=== PATIENT | female | born 1955 | race Caucasian/White ===

== ENCOUNTER → 2016-03-07 | Outpatient (REF) | payer BC ==
[2016-03-07 13:45] LABS: CRYSTALS, BODY FLUID NONE SEEN (NONE SEEN)
[2016-03-07 13:59] LABS: RBC ADVIA BF 0; RBC CALC. BF < 10000 (< 10mm3 cells/uL); WBC ADVIA BF 12.6; WBC CALC. BF 12600 cells/uL (0-20)
[2016-03-07 14:15] LABS: BF DIFF IF INDICATED? YES (NO); SYNOVIAL FLUID COLOR PALE YELLOW (YELLOW)
[2016-03-07 14:25] LABS: CC BF DIFF EXAM CYTOCENTRIFUGE
== END ==
LOC: M LAB REF 13:22
PROVIDERS: ATTEND Internal Medicine Rheumatology
DX: M10.9 Gout, unspecified (principal)

== ENCOUNTER → 2016-03-23 | Outpatient (CLI) | payer BC ==
[2016-03-23 19:36] LABS: ALBUMIN/GLOBULIN RATIO 1.21 (1.00-1.93); ALKALINE PHOSPHATASE 120 U/L (45-117); ALT/SGPT 27 U/L (12-78); ANION GAP 6 MEQ/L (8-16); AST/SGOT 21 U/L (15-37); BILIRUBIN,TOTAL 0.3 MG/DL (0.2-1.0); BLOOD UREA NITROGEN 18 MG/DL (7-18); CALCIUM LEVEL 8.8 MG/DL (8.8-10.2); CARBON DIOXIDE LEVEL 30 MEQ/L (21-32); CHLORIDE LEVEL 106 MEQ/L (98-107); CREATININE FOR GFR 0.76 MG/DL (0.55-1.02); GLOMERULAR FILTRATION RATE > 60.0 (>45); GLUCOSE, FASTING 81 MG/DL (80-110); PERCENT SATURATION 16.7 % (13.2-37.4); SODIUM LEVEL 142 MEQ/L (136-145); TOTAL IRON BINDING CAPACITY 323 UG/DL (250-450); TOTAL PROTEIN 7.3 GM/DL (6.4-8.2); URIC ACID 4.4 MG/DL (2.6-6.0)
[2016-03-23 19:39] LABS: BASO % 0.8 % (0.0-1.0); EOS # 0.2 K/mm3 (0.0-0.50); EOS % 4.4 % (0.0-3.0); LARGE UNSTAINED CELL # 0.1 K/mm3 (0.0-0.4); LARGE UNSTAINED CELL % 1.9 % (0.0-4.0); LYMPH # 1.4 K/mm3 (1.5-4.5); LYMPH % 27.7 % (24.0-44.0); MEAN CORPUSCULAR HEMOGLOBIN 26.9 pg (27.0-33.0); MEAN CORPUSCULAR HGB CONC 32.7 g/dl (32.0-36.5); MEAN CORPUSCULAR VOLUME 82.3 fl (80.0-96.0); MONO # 0.3 K/mm3 (0.0-0.8); MONO % 5.9 % (0.0-5.0); NEUTROPHILS # 2.9 K/mm3 (1.8-7.7); NEUTROPHILS % 59.3 % (36.0-66.0); PLATELET COUNT, AUTOMATED 326 k/mm3 (150-450); RED CELL DISTRIBUTION WIDTH 15.4 % (11.5-14.5); WHITE BLOOD COUNT 4.9 K/mm3 (4.0-10.0)
[2016-03-23 20:15] LABS: ERYTHROCYTE SEDIMENTATION RATE 33 mm/hr (0-30)
[2016-03-26 08:06] LABS: Lyme Disease IgG Ab 18 kDa Ban Present (.); Lyme Disease IgG Ab 23 kDa Ban Present (.); Lyme Disease IgG Ab 28 kDa Ban Present (.); Lyme Disease IgG Ab 30 kDa Ban Present (.); Lyme Disease IgG Ab 39 kDa Ban Present (.); Lyme Disease IgG Ab 41 kDa Ban Present (.); Lyme Disease IgG Ab 45 kDa Ban Present (.); Lyme Disease IgG Ab 58 kDa Ban Present (.); Lyme Disease IgG Ab 66 kDa Ban Present (.); Lyme Disease IgG Ab 93 kDa Ban Present (.); Lyme Disease IgG West Blot Int Positive (.); Lyme Disease IgG/IgM Antibodie 3.28 ISR (0.00-0.90); Lyme Disease IgM Ab 23 kDa Ban Present (.); Lyme Disease IgM Ab 39 kDa Ban Present (.); Lyme Disease IgM Ab 41 kDa Ban Present (.); Lyme Disease IgM Ab Quantitati 4.23 index (0.00-0.79); Lyme Disease IgM West Blot Int Positive (.)
[2016-03-27 12:57] LABS: ALBUMIN 4.18 GM/DL (3.29-5.55); ALBUMIN % 57.2 % (55.8-66.1); GAMMA GLOBULIN % 16.5 % (11.1-18.8)
== END ==
LOC: M LAB 18:14
PROVIDERS: ATTEND Internal Medicine Rheumatology
DX: E83.110 Hereditary hemochromatosis (principal)

== ENCOUNTER → 2016-04-17 | Outpatient (CLI) | payer BC ==
[~2016-04-17] VITALS: Ht 167.6 cm; Wt 68.0 kg
[~2016-04-17] MED LIST: DOXY-278 PO; MULT1TAB10 PO; PROPOFOL 200 MG/20 ML VIAL As Ordered ONE
[2016-04-17] MEDS: NS 1,000 ML IV SCH ×2 (07:41→07:42)
--- NOTE | 2016-04-17 08:10 | ROOR ---
Patient Name: Joselyn Cisse Procedure Date: 04/17/2016 7:49 AM Date of : 1955 Age: 60 Room: [place] Gender: Female Note Status: Finalized Procedure: Colonoscopy Indications: Screening for colorectal malignant neoplasm Providers: Billy AGUSTIN MD Referring MD: Bela Hairston DO Requesting Provider: Medicines: Monitored Anesthesia Care Complications: No immediate complications. Procedure: Pre-Anesthesia Assessment: - The heart rate, respiratory rate, oxygen saturations, blood pressure, adequacy of pulmonary ventilation, and response to care were monitored throughout the procedure. The Colonoscope was introduced through the anus and advanced to the terminal ileum, with identification of the appendiceal orifice and IC valve. The colonoscopy was performed without difficulty. The patient tolerated the procedure well. The quality of the bowel preparation was good. Findings: The perianal and digital rectal examinations were normal. (Exam: Complete, Prep: Good or Excellent.) The terminal ileum appeared normal. The entire examined colon appeared normal on direct and retroflexion views. Impression: - (Exam: Complete, Prep: Good or Excellent.) - Small internal hemorrhoids. - The examined portion of the ileum was normal. - The entire is normal on direct and retroflexion views. - No specimens collected. Recommendation: - Repeat colonoscopy in 10 years for screening purposes. Billy Agustin MD Billy AGUSTIN MD 04/17/2016 8:10:19 AM This report has been signed electronically. Number of Addenda: 0 Note Initiated On: 04/17/2016 7:49 AM Estimated Blood Loss: Estimated blood loss: none.
[2016-04-17 08:30] VITALS: BP 127/69
== END | disposition home or self-care (01) ==
LOC: M OPP 07:08
PROVIDERS: ATTEND Internal Medicine Gastroenterology
DX: Z12.11 Encounter for screening for malignant neoplasm of colon (principal); K64.8 Other hemorrhoids; D64.9 Anemia, unspecified; Z80.3 Family history of malignant neoplasm of breast; Z79.899 Other long term (current) drug therapy
CPT/HCPCS: 99156; G0121

== ENCOUNTER → 2016-07-27 | Outpatient (REF) | payer OTHER ==
[~2016-07-27] MED LIST changes: -PROPOFOL 200 MG/20 ML VIAL As Ordered ONE
[2016-07-27 13:26] LABS: BASO % 0.9 % (0.0-1.0); EOS # 0.6 K/mm3 (0.0-0.50); EOS % 12.7 % (0.0-3.0); LARGE UNSTAINED CELL # 0.1 K/mm3 (0.0-0.4); LARGE UNSTAINED CELL % 2.3 % (0.0-4.0); LYMPH # 1.5 K/mm3 (1.5-4.5); LYMPH % 31.6 % (24.0-44.0); MEAN CORPUSCULAR HEMOGLOBIN 29.9 pg (27.0-33.0); MEAN CORPUSCULAR HGB CONC 33.9 g/dl (32.0-36.5); MEAN CORPUSCULAR VOLUME 88.2 fl (80.0-96.0); MONO # 0.3 K/mm3 (0.0-0.8); MONO % 6.8 % (0.0-5.0); NEUTROPHILS # 2.1 K/mm3 (1.8-7.7); NEUTROPHILS % 45.8 % (36.0-66.0); PLATELET COUNT, AUTOMATED 305 k/mm3 (150-450); RED CELL DISTRIBUTION WIDTH 13.3 % (11.5-14.5); WHITE BLOOD COUNT 4.6 K/mm3 (4.0-10.0)
== END ==
LOC: M SFHCADAM 09:53
PROVIDERS: ATTEND Family Medicine
DX: D64.9 Anemia, unspecified (principal); E55.9 Vitamin D deficiency, unspecified

== ENCOUNTER → 2016-09-08 | Outpatient (REF) | payer OTHER | LOC: M LAB REF 17:35 | PROVIDERS: ATTEND Advanced Practice Midwife | DX: Z12.4 Encounter for screening for malignant neoplasm of cervix (principal) ==

== ENCOUNTER → 2016-09-12 | Outpatient (CLI) | payer OTHER ==
--- NOTE | 2016-09-12 16:28 | REP ---
BILATERAL MAMMOGRAM WITH DIAGNOSTIC MAMMOGRAM RIGHT BREAST AND RIGHT BREAST ULTRASOUND: Bilateral mammography is performed in the MLO and mL projections. There is a history of palpable abnormality in the upper outer quadrant of the right breast and that area is marked on the skin with a triangular marker. There is a family history of breast cancer in maternal aunt and maternal grandmother. Moderate fibroglandular tissue is seen bilaterally. There is a large spiculated mass in the upper outer quadrant of the right breast at the site of the reported palpable abnormality. The mass measures approximately 3 cm in diameter. No other mass or clustered microcalcifications are seen bilaterally. Real-time sonographic evaluation of the right breast is performed at the site of the reported palpable abnormality in the upper outer quadrant of the right breast. There is a large irregular shadowing mass 1.5 cm in diameter in the region of 11 o'clock. These findings are highly suspicious. IMPRESSION: ACR 5 mammogram compatible with breast cancer, upper outer quadrant right breast. Large spiculated mass is seen both mammographically and sonographically. Findings are compatible with breast cancer. This mammogram was interpreted with the aid of an FDA-approved computer-aided detection system. The patient states she had a clinical breast exam in 09/2016. The patient letter being requested is M4. Signed by Kenn Gil MD 09/12/2016 05:00 P
== END ==
LOC: M RAD 13:29
PROVIDERS: ATTEND Advanced Practice Midwife
DX: Z12.31 Encounter for screening mammogram for malignant neoplasm of breast (principal)

== ENCOUNTER → 2016-09-27 | Outpatient (REF) | payer OTHER ==
[2016-09-27 20:09] LABS: ANION GAP 6 MEQ/L (8-16); BLOOD UREA NITROGEN 14 MG/DL (7-18); CALCIUM LEVEL 8.9 MG/DL (8.8-10.2); CARBON DIOXIDE LEVEL 29 MEQ/L (21-32); CHLORIDE LEVEL 102 MEQ/L (98-107); GLOMERULAR FILTRATION RATE > 60.0 (>45); GLUCOSE, FASTING 87 MG/DL (80-110); POTASSIUM SERUM 3.9 MEQ/L (3.5-5.1); SODIUM LEVEL 137 MEQ/L (136-145)
== END ==
LOC: M LAB REF 19:52
PROVIDERS: ATTEND Nurse Practitioner Family
DX: C50.911 Malignant neoplasm of unspecified site of right female breast (principal)

== ENCOUNTER → 2016-10-18 | Outpatient (REF) | payer OTHER | LOC: M LAB REF 14:34 | PROVIDERS: ATTEND Ophthalmology | DX: C44.119 Basal cell carcinoma of skin of left eyelid, including canthus (principal) ==

== ENCOUNTER → 2016-12-08 | Outpatient (CLI) | payer OTHER ==
--- NOTE | 2016-12-08 11:06 | REP ---
Radionuclide ventriculography: History: Lobular carcinoma of the right breast. Pre-chemotherapy. Technique: 26.7 mCi technetium 99m in-vitro labeled UltraTag RBC agent is administered intravenously. Anterior, ROMAN, and left lateral gated left ventriculography is acquired scintigraphically. Semi-automated segmental wall motion analysis and left ventricular ejection fraction is acquired. Findings: There is a small artifactual area of photopenia on the anterior and more prominently, ROMAN views overlying the left ventricular wall correlating with a metallic component of the patient's post mastectomy breast reconstruction tissue hot die press feeder device. Left ventricular overall ejection fraction is 76%. No segmental wall motion abnormality is seen visually or detected on semi-automated segmental wall motion analysis. Impression: Normal left ventricular ejection fraction. No wall motion abnormality. Signed by Fausto Schuler MD 12/08/2016 03:50 P
== END ==
LOC: M RAD 08:28
PROVIDERS: ATTEND Internal Medicine Hematology & Oncology
DX: C50.919 Malignant neoplasm of unspecified site of unspecified female breast (principal)

== ENCOUNTER → 2016-12-15 | Outpatient (CLI) | payer OTHER ==
--- NOTE | 2016-12-15 14:32 | REP ---
WHOLE BODY RADIONUCLIDE BONE SCAN: HISTORY: Breast carcinoma. Question metastases. The patient denies bone or joint pain. TECHNIQUE: 22.0 mCi technetium 99m MDP is injected and standard whole body bone scan images are acquired. SCINTIGRAPHIC FINDINGS: There is uptake in bilateral kidneys and in the urinary bladder. There is a focus of intensely increased uptake in the head and neck junction region of the right proximal femur in the right hip. This must be considered suspicious. MRI scanning of the right hip is recommended. There is arthritic uptake in each knee and in each midfoot. There is no other evidence to suggest skeletal metastatic disease. IMPRESSION: Solitary suspicious focus of increased uptake in the right hip. Recommend right hip MRI study. No definite lesion seen on recent CT study. No other scintigraphic evidence of metastatic disease. Signed by Fausto Schuler MD 12/15/2016 03:15 P
== END ==
LOC: M RAD 09:40
PROVIDERS: ATTEND Internal Medicine Hematology & Oncology
DX: C50.911 Malignant neoplasm of unspecified site of right female breast (principal)

== ENCOUNTER → 2017-05-03 | Outpatient (CLI) | payer OTHER | LOC: M ONCR 13:10 | DX: C50.919 Malignant neoplasm of unspecified site of unspecified female breast (principal) | CPT/HCPCS: G0463 ==

== ENCOUNTER 2017-05-22 14:00 | Outpatient (RCR) | payer OTHER | END 2017-06-02 | LOC: M ONCR 14:00 | DX: C50.411 Malignant neoplasm of upper-outer quadrant of right female breast (principal) | CPT/HCPCS: 77334 ==

== ENCOUNTER → 2017-05-22 | Outpatient (CLI) | payer OTHER | LOC: M RAD 14:03 | DX: C50.911 Malignant neoplasm of unspecified site of right female breast (principal) ==

== ENCOUNTER 2017-06-04 14:47 | Outpatient (RCR) | payer OTHER | END 2017-07-02 | LOC: M ONCR 14:47 | DX: C50.411 Malignant neoplasm of upper-outer quadrant of right female breast (principal) | CPT/HCPCS: 77300 ==

== ENCOUNTER → 2017-06-04 | Outpatient (CLI) | payer OTHER | LOC: M RAD 14:32 | DX: C50.411 Malignant neoplasm of upper-outer quadrant of right female breast (principal) ==

== ENCOUNTER 2017-07-03 11:27 | Outpatient (RCR) | payer OTHER | END 2017-08-02 | LOC: M ONCR 11:27 | DX: C50.411 Malignant neoplasm of upper-outer quadrant of right female breast (principal) | CPT/HCPCS: 77336 ==

== ENCOUNTER → 2017-08-22 | Outpatient (CLI) | payer OTHER | LOC: M ONCR 09:47 | DX: C50.411 Malignant neoplasm of upper-outer quadrant of right female breast (principal) ==

== ENCOUNTER → 2018-08-21 | Outpatient (CLI) | payer OTHER ==
[~2018-08-21] MED LIST changes: -DOXY-278 PO; +DOXY-350 PO; +SILV40CR EXT
--- NOTE | 2018-08-23 07:43 | RADONC ---
RADIATION ONCOLOGY FOLLOWUP NOTE: DATE: 08/21/2018 CHART NUMBER: [id number] DIAGNOSIS: Right breast cancer. STAGE: III A,T3,N1a,M0. ECOG PERFORMANCE STATUS: 0 Ms. 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 The patient presents today reporting that she is doing quite well with no complaints at this time related to her radiation therapy or disease other than some left hip and thigh pain, mostly at night. REVIEW OF SYSTEMS: The patient's review of systems is positive for left hip and thigh pain but is otherwise noncontributory. She denies nausea, vomiting, fevers, chills, night sweats, diplopia, headaches, anxiety or depression, anorexia, weight loss, visual disturbances, chest pain, urinary or bowel difficulties, bone pain, or neurological problems. PHYSICAL EXAMINATION: The patient's skin is in good condition with no evidence of radiation change present. There is no moist or dry desquamation. The remainder of her physical exam remains unchanged. Ms. Cisse is clinically doing quite well at this time and I have scheduled her to see me again in 6 months for further followup. She will also continue to be followed by her other physicians. She is seeing Dr. Pruitt every 6 months. I have ordered a new bone scan to evaluate her left hip pain for the sake of thoroughness. cc: MD Pepper Marrero MD Caitlin Donegan-Tartell, DO Prashant Upadhyaya, MD
== END ==
LOC: M ONCR 11:13
PROVIDERS: ATTEND Radiology Radiation Oncology
DX: Z85.3 Personal history of malignant neoplasm of breast (principal); Z92.3 Personal history of irradiation

== ENCOUNTER → 2018-09-26 | Outpatient (CLI) | payer OTHER ==
--- NOTE | 2018-09-26 15:26 | REP ---
WHOLE BODY BONE SCAN: Following the intravenous administration of 21.8 mCi technetium 99m MDP, patient's whole body is imaged in the anterior and posterior projections. Additional oblique and lateral views are also obtained. COMPARISON: 12/15/2016 Previously noted focus of increased uptake in the lateral right femoral head/neck region is not visualized on today's exam. There does appear to be diffuse increased uptake throughout the right hip joint region suggesting arthritic change. There are areas of mild increased uptake at the thoracolumbar junction and in the lumbar spine diffusely, suggesting arthritic uptake. There is no compelling scintigraphic evidence of osseous metastases. Renal and bladder activity are seen. There is no abnormal uptake at the site of pain in the left hip. IMPRESSION: No abnormal left hip uptake. There is mild diffuse increased uptake in the region of the right hip joint suggesting arthritic uptake. Mild increased uptake throughout the lumbar spine is also suggestive of arthritic uptake. No compelling scintigraphic evidence of osseous metastases. Electronically Signed by Kenn Gil MD 09/26/2018 05:47 P
== END ==
LOC: M RAD 10:35
PROVIDERS: ATTEND Radiology Radiation Oncology
DX: M25.552 Pain in left hip (principal)
CPT/HCPCS: 78306; A9503

== ENCOUNTER → 2018-11-12 | Outpatient (REF) | payer OTHER ==
[2018-11-12 13:33] LABS: CHOLESTEROL RISK RATIO 2.437 (<5)
== END ==
LOC: M SFHCADAM 08:36
PROVIDERS: ATTEND Family Medicine
DX: Z00.00 Encounter for general adult medical examination without abnormal findings (principal)

== ENCOUNTER → 2019-02-05 | Outpatient (CLI) | payer OTHER ==
--- NOTE | 2019-02-05 14:07 | RADONC ---
RADIATION ONCOLOGY FOLLOWUP NOTE DATE: 02/05/2019 DATE of ; 1955 CHART NUMBER: [id number] Mrs. Cisse is a very pleasant 63-year-old woman who had a diagnosis of right breast cancer, stage is III A, T3NaM0. She completed radiation therapy on 07/20/2017. INTERVAL HISTORY: Since she finished the treatment, she has been on anastrazole. She has some pain in the left hip and thigh, mostly at night, however, the pain is relieved with change of position. REVIEW OF SYSTEMS: She has pain in the left hip and thigh. Otherwise, she denies any fever, chills, hot flashes or bone pain. ECOG Perfomace score:0 PHYSICAL EXAMINATION: She appeared to be well nourished. No apparent distress. There is no palpable lymphadenopathy in the neck, axillae bilaterally. Both breasts are reconstructed. Lungs are clear. There is no bony tenderness over the spine or ribcage. Extremities are without swelling or cyanosis. ASSESSMENT/RECOMMENDATIONS: 63-year-old woman who has a diagnosis of stage III A right breast cancer. She is completed radiation therapy in July 2017, she is currently on anastrazole and experiencing pain in the left hip and thigh that is mostly at night, which is relieved by change of position. She is scheduled for MRI of both breasts in a couple of months. She was advised continuous followup care with the physicians involved and she was asked to return here in 6 months. [facility]
== END ==
LOC: M ONCR 13:13
PROVIDERS: ATTEND Radiology Radiation Oncology
DX: C50.411 Malignant neoplasm of upper-outer quadrant of right female breast (principal); Z92.3 Personal history of irradiation

== ENCOUNTER → 2019-08-20 | Outpatient (CLI) | payer MEDICARE, OTHER ==
--- NOTE | 2019-08-21 17:53 | RADONC ---
RADIATION ONCOLOGY FOLLOWUP NOTE DATE: 08/20/2019 This is a telemedicine visit. The patient was informed of the risks including security breech, technological failure, inability to perform a comprehensive physical exam which could delay or prevent an accurate diagnosis, and potential complications from treatment decisions rendered over a telemedicine platform. The patient understands and consented to the use of telehealth services phone only. CHART NUMBER: [id number] DIAGNOSIS: Right breast cancer. STAGE: III A, T3, N1a, M0 ECOG PERFORMANCE STATUS: 0 FOLLOWUP NOTE: Ms. Cisse is a very pleasant 64-year-old white female with the diagnosis of a right-sided, moderately differentiated invasive and in situ lobular carcinoma of the breast, who is presenting to us today for routine followup visit via telephone 2 years and 1 month post completion of external beam radiation therapy. The patient presents today reporting that she is doing quite well with no complaints at this time related to her radiation therapy or disease. She has no chest wall pain or other problems. The patient's review of systems is noncontributory. She denies nausea, vomiting, fevers, chills, night sweats, diplopia, headaches, anxiety or depression, anorexia, weight loss, visual disturbances, chest pain, urinary or bowel difficulties, bone pain, or neurological problems. PHYSICAL EXAMINATION: Physical examination was deferred as per COVID-19 precautions. This was a telephone interview. ASSESSMENT: The patient is clinically doing quite well at this point. She is following with her medical oncologist, Dr. Jonathan Hutchinson, routinely. In addition, she is being seen in September by her surgeon Dr. Pepper Louis, and an MRI is scheduled. She is also being followed by her other physicians in the meantime. I have scheduled the patient to be seen in our office in 4-months' time. I explained to her that I will be retiring and this way we can set her up with the new physician for routine followups. I let her know if she is continuing her close followup and management with her physicians in [place] then, of course, she can cancel this, this way we are closing the loops so that she will remain in the system and will not be lost after my long-term. cc: MD Pepper Marrero MD Caitlin Donegan-Tartell, DO Prashant Upadhyaya, MD
== END ==
LOC: M ONCR 10:44
PROVIDERS: ATTEND Radiology Radiation Oncology
DX: C50.411 Malignant neoplasm of upper-outer quadrant of right female breast (principal)

== ENCOUNTER → 2020-03-31 | Outpatient (REF) | payer MEDICARE | LOC: M SFHCWAGY 17:18 | PROVIDERS: ATTEND Advanced Practice Midwife | DX: Z12.4 Encounter for screening for malignant neoplasm of cervix (principal); N95.8 Other specified menopausal and perimenopausal disorders | CPT/HCPCS: 87624; G0123 ==

== ENCOUNTER → 2020-04-05 | Outpatient (CLI) | payer MEDICARE ==
--- NOTE | 2020-04-05 13:40 | REP ---
INDICATION: RT SIDED CRAMPING,HX BREAST CA ANDATM GENE. COMPARISON: Comparison CT study abdomen and pelvis December 12, 2016. Comparison sonography October 31, 2019.. TECHNIQUE: Transabdominal and transvaginal scanning were performed. FINDINGS: Uterine dimensions are normal at 5.3 x 0 1.7 x 3.4 cm. Endometrial echo is 0.8 cm thick and centrally placed. No free fluid is seen in the cul-de-sac. Visualized bladder zapata are smooth. There is a trace of endo meet real fluid. There is a small 0.5 cm fundal fibroid. The right ovary has dimensions of 2.1 by 0.7 x 1.4 cm. Doppler flow was observed. The left ovary dimensions are normal as well at 2.4 x 1.1 x 0.9 cm. Doppler flow was observed. IMPRESSION: Trace of endometrial fluid. No evidence of endometrial polyp. 0.5 cm fibroid in the fundus.. Otherwise negative. <Electronically signed by Raffi Schuler > 04/05/20 [id number]
== END ==
LOC: M WHC 10:27
PROVIDERS: ATTEND Advanced Practice Midwife
DX: R10.2 Pelvic and perineal pain (principal); Z85.3 Personal history of malignant neoplasm of breast

== ENCOUNTER → 2020-06-11 | Outpatient (CLI) | payer MEDICARE | LOC: M WHC 13:50 | PROVIDERS: ATTEND Obstetrics & Gynecology | DX: R93.89 Abnormal findings on diagnostic imaging of other specified body structures (principal) ==

== ENCOUNTER → 2020-12-14 | Outpatient (CLI) | payer MEDICARE ==
--- NOTE | 2020-12-14 14:31 | REP ---
INDICATION: THICKENED ENDOMETRIUM COMPARISON: 04/05/2020 TECHNIQUE: Transabdominal pelvic ultrasound followed by transvaginal examination for better evaluation of the endometrium and adnexa. FINDINGS: Bladder is unremarkable and measures 8.8 x 8.3 x 9.3 cm. Anteverted uterus measures 5.8 x 2.1 x 3.8 cm. Trace endocervical fluid is noted. The endometrial complex measures approximately 1.8 mm thickness excluding the fluid. 6 mm submucosal fundal fibroid identified. Left ovary is not visualized. Right ovary is normal in appearance measuring 1.4 x 0.8 x 0.9 cm. No pelvic fluid or adnexal mass lesion IMPRESSION: Sub cm fundal submucosal fibroid <Electronically signed by Cedrick Mathews > 12/14/20 [id number]
== END ==
LOC: M WHC 13:01
PROVIDERS: ATTEND Obstetrics & Gynecology
DX: R93.89 Abnormal findings on diagnostic imaging of other specified body structures (principal)

== ENCOUNTER → 2021-03-25 | Outpatient (CLI) | payer MEDICARE ==
[~2021-03-25] MED LIST changes: +ANAS1TAB2 PO; +CETI10TA4 PO; +FLON1SPR; +VITMTA PO
== END ==
LOC: M LABSMTC 10:28
PROVIDERS: ATTEND Anesthesiology
DX: Z01.812 Encounter for preprocedural laboratory examination (principal); Z20.822 Contact with and (suspected) exposure to COVID-19

== ENCOUNTER 2021-03-30 08:27 | Day surgery (SDC) | payer MEDICARE ==
[~2021-03-30] VITALS: Ht 165.1 cm; Wt 69.4 kg
[2021-03-30 12:40] VITALS: BP 158/97
== END 2021-03-30 13:00 | disposition home or self-care (01) ==
LOC: M SDC 08:27
PROVIDERS: ATTEND Obstetrics & Gynecology
DX: N84.0 Polyp of corpus uteri (principal); N88.2 Stricture and stenosis of cervix uteri; Z79.899 Other long term (current) drug therapy; Z92.21 Personal history of antineoplastic chemotherapy; Z85.3 Personal history of malignant neoplasm of breast; Z92.3 Personal history of irradiation
CPT/HCPCS: 36415; 58558; 85027; 86850; 86900; 86901; 88305; J1100; J1885; J2250; J2405; J2765; J3010

== ENCOUNTER → 2021-05-06 | Outpatient (CLI) | payer MEDICARE | LOC: M WHC 14:56 | PROVIDERS: ATTEND Internal Medicine Hematology & Oncology | DX: Z13.820 Encounter for screening for osteoporosis (principal); C50.411 Malignant neoplasm of upper-outer quadrant of right female breast; M85.88 Other specified disorders of bone density and structure, other site; M85.851 Other specified disorders of bone density and structure, right thigh; M85.852 Other specified disorders of bone density and structure, left thigh ==

== ENCOUNTER → 2021-11-24 | Outpatient (REF) | payer MEDICARE ==
[2021-11-24 13:37] LABS: BASO # 0.1 10^3/uL (0.0-0.2); BASO % 1.6 % (0.0-1.0); EOS # 0.3 10^3/uL (0.0-0.5); EOS % 7.8 % (0.0-3.0); HEMATOCRIT 39.4 % (36.0-47.0); HEMOGLOBIN 12.9 g/dl (12.0-15.5); LYMPH # 1.3 10^3/uL (1.5-5.0); LYMPH % 33.4 % (24.0-44.0); MEAN CORPUSCULAR HEMOGLOBIN 29.6 pg (27.0-33.0); MEAN CORPUSCULAR HGB CONC 32.7 g/dl (32.0-36.5); MEAN CORPUSCULAR VOLUME 90.4 fl (80.0-96.0); MONO # 0.4 10^3/uL (0.0-0.8); MONO % 9.4 % (2.0-8.0); NEUTROPHILS # 1.8 10^3/uL (1.5-8.5); NEUTROPHILS % 47.5 % (36.0-66.0); PLATELET COUNT, AUTOMATED 272 10^3/uL (150-450); RED BLOOD COUNT 4.36 10^6/uL (4.00-5.40); WHITE BLOOD COUNT 3.8 10^3/uL (4.0-10.0)
[2021-11-24 14:24] LABS: ALBUMIN 3.9 GM/DL (3.2-5.2); ALT/SGPT 26 U/L (12-78); BILIRUBIN,TOTAL 0.7 MG/DL (0.2-1.0); BLOOD UREA NITROGEN 11 MG/DL (7-18); CALCIUM LEVEL 9.1 MG/DL (8.8-10.2); CARBON DIOXIDE LEVEL 27 MEQ/L (21-32); CHLORIDE LEVEL 107 MEQ/L (98-107); CHOLESTEROL LEVEL 193 MG/DL (<200); CHOLESTEROL RISK RATIO 2.075 (<5); CREATININE FOR GFR 0.85 MG/DL (0.55-1.30); GLOMERULAR FILTRATION RATE > 60.0 (>45); GLUCOSE, FASTING 77 MG/DL (70-100); HDL CHOLESTEROL 93 MG/DL (>40); LDL CHOLESTEROL 87 MG/DL (<100); NON-HDL-C 100 MG/DL; POTASSIUM SERUM 4.2 MEQ/L (3.5-5.1); SODIUM LEVEL 137 MEQ/L (136-145); TOTAL PROTEIN 6.9 GM/DL (6.4-8.2); TRIGLYCERIDES LEVEL 64 MG/DL (<150)
[2021-11-24 15:27] LABS: TOTAL 25(OH) VITAMIN D 39.9 NG/ML (30.0-100.0)
== END ==
LOC: M SFHCADAM 07:57
PROVIDERS: ATTEND Family Medicine
DX: Z00.00 Encounter for general adult medical examination without abnormal findings (principal); E55.9 Vitamin D deficiency, unspecified; Z79.811 Long term (current) use of aromatase inhibitors; Z79.899 Other long term (current) drug therapy

== ENCOUNTER 2022-03-15 09:21 | Emergency (ER) | payer MEDICARE ==
[~2022-03-15] VITALS: Ht 165.1 cm; Wt 66.4 kg
[~2022-03-15 09:21] MED LIST changes: -DOXY-350 PO; +DOXY-444 PO
[2022-03-15] MEDS ORDERED: NS 1,000 ML IV ONE (09:50)
[2022-03-15] MEDS ORDERED: METOCLOPRAMIDE INJ 10MG/2ML VIAL IV ONE (09:50)
[2022-03-15 10:53] LABS: BASO # 0.1 10^3/uL (0.0-0.2); BASO % 0.6 % (0.0-1.0); EOS # 0.1 10^3/uL (0.0-0.5); EOS % 1.7 % (0.0-3.0); HEMOGLOBIN 13.1 g/dl (12.0-15.5); LYMPH # 1.2 10^3/uL (1.5-5.0); LYMPH % 15.7 % (24.0-44.0); MEAN CORPUSCULAR HEMOGLOBIN 29.4 pg (27.0-33.0); MEAN CORPUSCULAR HGB CONC 32.8 g/dl (32.0-36.5); MEAN CORPUSCULAR VOLUME 89.9 fl (80.0-96.0); MONO # 0.4 10^3/uL (0.0-0.8); MONO % 5.7 % (2.0-8.0); NEUTROPHILS # 5.8 10^3/uL (1.5-8.5); NEUTROPHILS % 75.9 % (36.0-66.0); PLATELET COUNT, AUTOMATED 230 10^3/uL (150-450); RED BLOOD COUNT 4.45 10^6/uL (4.00-5.40); WHITE BLOOD COUNT 7.7 10^3/uL (4.0-10.0)
[2022-03-15 11:16] LABS: BLOOD UREA NITROGEN 13 MG/DL (9-23); CALCIUM LEVEL 8.8 MG/DL (8.3-10.6); CARBON DIOXIDE LEVEL 22 MMOL/L (20-31); CHLORIDE LEVEL 104 MMOL/L (98-107); CREATININE FOR GFR 0.72 MG/DL (0.55-1.30); GLOMERULAR FILTRATION RATE > 60.0 (>45); GLUCOSE, FASTING 107 MG/DL (74-106); POTASSIUM SERUM 3.6 MMOL/L (3.5-5.1); SODIUM LEVEL 137 MMOL/L (136-145)
[2022-03-15 12:22] VITALS: BP 160/73
== END 2022-03-15 12:30 | disposition home or self-care (01) ==
LOC: M ED 09:21 → EDBD 09:21 → M ED 12:30
DX: R55 Syncope and collapse (principal); I44.0 Atrioventricular block, first degree; Z85.3 Personal history of malignant neoplasm of breast; Z92.3 Personal history of irradiation; Z92.21 Personal history of antineoplastic chemotherapy; Z79.811 Long term (current) use of aromatase inhibitors; Z79.899 Other long term (current) drug therapy

== ENCOUNTER → 2022-05-31 | Outpatient (REF) | payer MEDICARE | LOC: M PLALAB 15:26 | PROVIDERS: ATTEND Nurse Practitioner Family | DX: Z12.4 Encounter for screening for malignant neoplasm of cervix (principal) ==

== ENCOUNTER → 2022-12-26 | Outpatient (REF) | payer MEDICARE ==
[2022-12-26 13:44] LABS: ALBUMIN 4.2 G/DL (3.2-5.2); ALKALINE PHOSPHATASE 104 U/L (46-116); ALT/SGPT 19 U/L (7.0-40); AST/SGOT 22 U/L (<34); BILIRUBIN,TOTAL 0.6 MG/DL (0.3-1.2); BLOOD UREA NITROGEN 17 MG/DL (9-23); CALCIUM LEVEL 9.6 MG/DL (8.3-10.6); CARBON DIOXIDE LEVEL 30 MMOL/L (20-31); CHLORIDE LEVEL 105 MMOL/L (98-107); CREATININE FOR GFR 0.76 MG/DL (0.55-1.30); GLOMERULAR FILTRATION RATE > 60.0 (>45); GLUCOSE, FASTING 68 MG/DL (74-106); POTASSIUM SERUM 4.5 MMOL/L (3.5-5.1); SODIUM LEVEL 140 MMOL/L (136-145); THYROID STIMULATING HORMONE 2.003 uIU/ML (0.55-4.78); TOTAL PROTEIN 6.9 G/DL (5.7-8.2)
[2022-12-26 13:45] LABS: FREE T4 0.85 NG/DL (0.89-1.76); TOTAL 25(OH) VITAMIN D 34.5 NG/ML (20.0-100.0)
[2022-12-26 13:51] LABS: BASO # 0.1 10^3/uL (0.0-0.2); EOS # 0.2 10^3/uL (0.0-0.5); EOS % 3.8 % (0.0-3.0); HEMATOCRIT 40.7 % (36.0-47.0); HEMOGLOBIN 13.6 g/dl (12.0-15.5); LYMPH # 1.5 10^3/uL (1.5-5.0); MEAN CORPUSCULAR HEMOGLOBIN 30.2 pg (27.0-33.0); MEAN CORPUSCULAR HGB CONC 33.4 g/dl (32.0-36.5); MEAN CORPUSCULAR VOLUME 90.4 fl (80.0-96.0); MONO # 0.5 10^3/uL (0.0-0.8); NEUTROPHILS # 3.5 10^3/uL (1.5-8.5); PLATELET COUNT, AUTOMATED 292 10^3/uL (150-450); WHITE BLOOD COUNT 5.8 10^3/uL (4.0-10.0)
== END ==
LOC: M SFHCADAM 10:26
PROVIDERS: ATTEND Physician Assistant
DX: Z00.00 Encounter for general adult medical examination without abnormal findings (principal); Z79.899 Other long term (current) drug therapy

== ENCOUNTER → 2023-12-12 | Outpatient (REF) | payer MEDICARE ==
[~2023-12-12] MED LIST changes: +DOXY-440 PO; -DOXY-444 PO
[2023-12-12 13:01] LABS: BASO # 0.1 10^3/uL (0.0-0.2); BASO % 1.4 % (0.0-1.0); EOS # 0.3 10^3/uL (0.0-0.5); EOS % 8.2 % (0.0-3.0); HEMATOCRIT 40.8 % (36.0-47.0); HEMOGLOBIN 13.3 g/dl (12.0-15.5); LYMPH # 1.3 10^3/uL (1.5-5.0); LYMPH % 30.3 % (24.0-44.0); MEAN CORPUSCULAR HGB CONC 32.6 g/dl (32.0-36.5); MEAN CORPUSCULAR VOLUME 92.1 fl (80.0-96.0); MONO # 0.4 10^3/uL (0.0-0.8); MONO % 10.3 % (2.0-8.0); NEUTROPHILS # 2.1 10^3/uL (1.5-8.5); NEUTROPHILS % 49.6 % (36.0-66.0); PLATELET COUNT, AUTOMATED 253 10^3/uL (150-450); RED BLOOD COUNT 4.43 10^6/uL (4.00-5.40); WHITE BLOOD COUNT 4.2 10^3/uL (4.0-10.0)
[2023-12-12 13:14] LABS: ALBUMIN 3.9 G/DL (3.2-5.2); ALKALINE PHOSPHATASE 111 U/L (46-116); ALT/SGPT 21 U/L (7.0-40); AST/SGOT 19 U/L (<34); BILIRUBIN,TOTAL 0.6 MG/DL (0.3-1.2); BLOOD UREA NITROGEN 13 MG/DL (9-23); CALCIUM LEVEL 9.2 MG/DL (8.3-10.6); CARBON DIOXIDE LEVEL 30 MMOL/L (20-31); CHLORIDE LEVEL 108 MMOL/L (98-107); CHOLESTEROL LEVEL 213 MG/DL (<200); CHOLESTEROL RISK RATIO 2.89 (<5); CREATININE FOR GFR 0.81 MG/DL (0.55-1.30); GLOMERULAR FILTRATION RATE > 60.0 (>45); GLUCOSE, FASTING 74 MG/DL (74-106); HDL CHOLESTEROL 73.6 MG/DL (>40); LDL CHOLESTEROL 118.2 MG/DL (<100); NON-HDL-C 139.4 MG/DL; POTASSIUM SERUM 4.7 MMOL/L (3.5-5.1); SODIUM LEVEL 142 MMOL/L (136-145); TOTAL PROTEIN 6.8 G/DL (5.7-8.2); TRIGLYCERIDES LEVEL 106 MG/DL (<150)
[2023-12-12 13:17] LABS: THYROID STIMULATING HORMONE 2.026 uIU/ML (0.55-4.78)
== END ==
LOC: M SFHCADAM 09:35
PROVIDERS: ATTEND Family Medicine
DX: Z00.00 Encounter for general adult medical examination without abnormal findings (principal); Z79.899 Other long term (current) drug therapy

== ENCOUNTER → 2024-06-25 | Outpatient (CLI) | payer MEDICARE ==
[~2024-06-25] MED LIST changes: +PROHANCE 279.3MG/ML 15ML VIAL ONE
== END ==
LOC: M PLAIMG 11:49
PROVIDERS: ATTEND Internal Medicine Hematology & Oncology
DX: C50.411 Malignant neoplasm of upper-outer quadrant of right female breast (principal)
CPT/HCPCS: 74183; A9576